=== PATIENT | male | born 1940 | race Caucasian/White ===

== ENCOUNTER 2016-08-11 05:47 | Emergency (ER) | payer MEDICARE, BC ==
[2016-08-11 04:28] LABS: BASOPHILS 0.2 %; BASOPHILS ABSOLUTE 0.02 10/3/uL (0.0-0.16); EOSINOPHILS 3.5 %; EOSINOPHILS ABSOLUTE 0.32 10/3/uL (0.0-0.53); IMMATURE GRANULOCYTES 0.6 %; IMMATURE GRANULOCYTES ABSOLUTE 0.05 10/3/uL (0.0-0.11); LYMPHOCYTES 22.7 %; LYMPHOCYTES ABSOLUTE 2.06 10/3/uL (0.67-4.30); MEAN CORPUS HGB CONC 32.7 g/dL (32.0-36.0); MEAN CORPUSCULAR HEMOGLOB 28.7 pg (26.0-34.0); MEAN PLATELET VOLUME 10.8 fL (9.2-13.0); MONOCYTES 15.9 %; MONOCYTES ABSOLUTE 1.44 10/3/uL (0.21-1.20); NEUTROPHILS 57.1 %; NEUTROPHILS ABSOLUTE 5.19 10/3/uL (2.02-8.40); PLATELET COUNT 161 10/3/uL (150-400); RBC DISTRIBUTION WIDTH 13.8 % (12.0-16.0); WHITE BLOOD CELLS 9.1 10/3/uL (4.5-10.5)
[2016-08-11 04:29] LABS: HEMOGLOBIN 9.8 g/dL (13.6-17.8); MANUAL DIFF NO %; RED CELL COUNT 3.41 10/6/uL (4.7-6.1)
[~2016-08-11 05:47] MED LIST: AMARYL4; CELEXA40 MG PO; FISH-EPA1000 MG PO; GLUCPH; LIPITOR40 PO; MULTIPLE VIT PO; NAP500 PO; NASOCORT; NEUR300 PO; NORCO1 TAB PO
== END 2016-08-11 05:50 | disposition home or self-care (01) ==
LOC: ER 05:47
PROVIDERS: Specialist
DX: D64.9 Anemia, unspecified (principal); E11.9 Type 2 diabetes mellitus without complications; Z79.84 Long term (current) use of oral hypoglycemic drugs; Z79.899 Other long term (current) drug therapy
CPT/HCPCS: 85025; 96374; 99283